=== PATIENT | male | born 1995 | race Caucasian/White ===

== ENCOUNTER → 2017-06-05 | Outpatient (REF) | payer OTHER ==
[2017-06-05 10:43] LABS: SPERM ABNORMAL FORMS OTHER (SPECIFIY)
[2017-06-05 10:44] LABS: % NORMAL FORMS < 4 % (>=4); IMMOTILITY 94 %; NON PROGRESSIVE MOTILITY (c) 6 %; PROGRESSIVE MOTILITY (a) 0 % (>=32); SPERM# 83.8 M/Ejac (>=39); TOTAL FUNCTIONAL 0 M/Ejac.; TOTAL MOTILITY 6 % (>=40); TOTAL PROGRESSIVE SPERM 0 M/Ejac.
== END ==
LOC: M LAB REF 10:32
PROVIDERS: ATTEND Obstetrics & Gynecology
DX: N46.8 Other male infertility (principal)

== ENCOUNTER → 2017-07-07 | Outpatient (REF) | payer OTHER ==
[2017-07-07 11:41] LABS: SEMEN APPEARANCE OPAQUE (OPAQUE); SEMEN VISCOSITY LIQUID (LIQUID); SEMEN VOLUME 6.9 ml (4.0-5.0); SEMEN pH 7.5 (7.0-8.0); SPERM CONCENTRATION 3.1 M/ml (>=15.0); WBC CONCENTRATION >1 M/ml (<=1 M/ml)
[2017-07-07 11:42] LABS: % NORMAL FORMS < 4 % (>=4); IMMOTILITY 83 %; NON PROGRESSIVE MOTILITY (c) 15 %; PROGRESSIVE MOTILITY (a) 2 % (>=32); SPERM# 21.3 M/Ejac (>=39); TOTAL FUNCTIONAL 0 M/Ejac.; TOTAL MOTILITY 17 % (>=40); TOTAL PROGRESSIVE SPERM 0.5 M/Ejac.
== END ==
LOC: M LAB REF 09:18
DX: N46.8 Other male infertility (principal)

== ENCOUNTER → 2018-01-30 | Outpatient (CLI) | payer OTHER | LOC: M LRY 11:02 | DX: S69.91XA Unspecified injury of right wrist, hand and finger(s), initial encounter (principal); X58.XXXA Exposure to other specified factors, initial encounter; Y92.89 Other specified places as the place of occurrence of the external cause; Y93.9 Activity, unspecified; Y99.9 Unspecified external cause status | CPT/HCPCS: 73140 ==

== ENCOUNTER 2019-01-11 15:42 | Emergency (ER) | payer OTHER ==
[~2019-01-11] VITALS: Ht 182.9 cm; Wt 84.1 kg
[2019-01-11] MEDS ORDERED: LIDOCAINE 2% MDV 20 ML VIAL SC ONE (17:15)
[2019-01-11] MEDS ORDERED: BACTRIM 160MG/800MG DS TAB PO ONE (17:30)
[2019-01-11] MEDS ORDERED: BACT800T5 PO (17:33)
[2019-01-11 17:40] VITALS: BP 130/73
== END 2019-01-11 17:47 | disposition home or self-care (01) ==
LOC: M ED 15:42
DX: L02.31 Cutaneous abscess of buttock (principal); F17.210 Nicotine dependence, cigarettes, uncomplicated; Z77.098 Contact with and (suspected) exposure to other hazardous, chiefly nonmedicinal, chemicals; F17.220 Nicotine dependence, chewing tobacco, uncomplicated

== ENCOUNTER → 2022-09-02 | Outpatient (CLI) | payer OTHER ==
[~2022-09-02] MED LIST: BACT800T5 PO
== END ==
LOC: M SOG 09:36
PROVIDERS: ATTEND Physician Assistant
DX: M79.642 Pain in left hand (principal)

== ENCOUNTER → 2023-09-17 | Outpatient (CLI) | payer OTHER | LOC: M PLAIMG 10:28 | PROVIDERS: ATTEND Physician Assistant | DX: R22.30 Localized swelling, mass and lump, unspecified upper limb (principal) ==

== ENCOUNTER 2023-12-09 18:33 | Emergency (ER) | payer OTHER ==
[~2023-12-09] VITALS: Ht 182.9 cm; Wt 103.0 kg
[2023-12-09 19:31] LABS: BASO # 0.1 10^3/uL (0.0-0.2); BASO % 0.9 % (0.0-1.0); EOS # 0.1 10^3/uL (0.0-0.5); EOS % 0.6 % (0.0-3.0); HEMATOCRIT 40.3 % (42.0-52.0); HEMOGLOBIN 14.4 g/dl (13.5-17.5); LYMPH # 1.7 10^3/uL (1.5-5.0); LYMPH % 22.3 % (24.0-44.0); MEAN CORPUSCULAR HEMOGLOBIN 36.2 pg (27.0-33.0); MEAN CORPUSCULAR HGB CONC 35.7 g/dl (32.0-36.5); MEAN CORPUSCULAR VOLUME 101.3 fl (80.0-96.0); MONO # 0.7 10^3/uL (0.0-0.8); MONO % 9.4 % (2.0-8.0); NEUTROPHILS # 5.2 10^3/uL (1.5-8.5); NEUTROPHILS % 66.4 % (36.0-66.0); PLATELET COUNT, AUTOMATED 229 10^3/uL (150-450); RED BLOOD COUNT 3.98 10^6/uL (4.30-6.10); WHITE BLOOD COUNT 7.8 10^3/uL (4.0-10.0)
[2023-12-09 19:57] LABS: LIPASE 27 U/L (12-53)
[2023-12-09 19:59] LABS: ALBUMIN 4.8 G/DL (3.2-5.2); ALKALINE PHOSPHATASE 78 U/L (46-116); ALT/SGPT 25 U/L (7.0-40); AST/SGOT 29 U/L (<34); BILIRUBIN,DIRECT 0.2 MG/DL (<0.4); BILIRUBIN,TOTAL 0.7 MG/DL (0.3-1.2); BLOOD UREA NITROGEN 23 MG/DL (9-23); CALCIUM LEVEL 10.1 MG/DL (8.5-10.1); CARBON DIOXIDE LEVEL 29 MMOL/L (20-31); CHLORIDE LEVEL 106 MMOL/L (98-107); CREATININE FOR GFR 0.98 MG/DL (0.70-1.30); GLOMERULAR FILTRATION RATE > 60.0 (>60); GLUCOSE, FASTING 80 MG/DL (60-100); POTASSIUM SERUM 4.1 MMOL/L (3.5-5.1); SODIUM LEVEL 142 MMOL/L (136-145); TOTAL PROTEIN 7.3 G/DL (5.7-8.2)
[2023-12-09 20:05] LABS: CPK CREATINE PHOSPHOKINASE 399 U/L (46-171)
[2023-12-09 23:26] LABS: CK-MB VALUE MASS 6.6 NG/ML (<3.6)
[2023-12-09 23:31] LABS: FREE T4 1.17 NG/DL (0.89-1.76)
[2023-12-09 23:56] LABS: MB/CK RELATIVE INDEX 1.85 (< OR =4); THYROID STIMULATING HORMONE 2.984 uIU/ML (0.55-4.78)
[2023-12-10] MEDS: KETOROLAC 30 MG/ML 1ML VIAL IV ONE (00:36)
[2023-12-10 00:40] VITALS: BP 128/68; TEMP 98.1; O2SAT 99
[2023-12-10] MEDS ORDERED: IBUP-1022 PO (00:58)
== END 2023-12-10 01:11 | disposition home or self-care (01) ==
LOC: M ED 18:33
DX: R07.9 Chest pain, unspecified (principal); I45.10 Unspecified right bundle-branch block; F17.200 Nicotine dependence, unspecified, uncomplicated; Z79.1 Long term (current) use of non-steroidal anti-inflammatories (NSAID)
CPT/HCPCS: 71045; 80053; 82248; 82550; 82553; 83690; 84439; 84443; 84484; 85025; 85379; 93005; 96374; 99284; J1885

== ENCOUNTER → 2024-01-21 | Outpatient (CLI) | payer OTHER ==
[~2024-01-21] MED LIST changes: +IBUP-1022 PO
== END ==
LOC: M PLAIMG 14:47
PROVIDERS: ATTEND Internal Medicine Pulmonary Disease
DX: J93.9 Pneumothorax, unspecified (principal)

== ENCOUNTER → 2024-01-29 | Outpatient (CLI) | payer OTHER | LOC: M RAD 17:53 | PROVIDERS: ATTEND Internal Medicine Pulmonary Disease | DX: J47.9 Bronchiectasis, uncomplicated (principal) ==

== ENCOUNTER 2024-02-29 07:46 | Day surgery (SDC) | payer OTHER ==
[~2024-02-29] VITALS: Ht 182.9 cm; Wt 101.2 kg
[~2024-02-29 07:46] MED LIST changes: +THERTAB52 PO
[2024-02-29] MEDS ORDERED: LR 1,000 ML IV SCH ×2 (08:35→11:05)
[2024-02-29] MEDS ORDERED: MIDAZOLAM INJ 2MG/2ML VIAL As Ordered ONE (09:36)
[2024-02-29] MEDS ORDERED: fentaNYL 100 MCG/2 ML INJECTION As Ordered ONE (09:37)
[2024-02-29] MEDS ORDERED: LIDOCAINE 2% 100MG/5ML SDV (FOR ANES.) As Ordered ONE (09:53)
[2024-02-29] MEDS ORDERED: propofoL 200 MG/20 ML VIAL As Ordered ONE (09:53)
[2024-02-29] MEDS ORDERED: ONDANSETRON 4MG 2ML VIAL As Ordered ONE (09:54)
[2024-02-29] MEDS ORDERED: KETOROLAC 60MG 2ML VIAL As Ordered ONE (09:55)
[2024-02-29] MEDS ORDERED: ACETAMINOPHEN 1000MG 100ML IV BAG As Ordered ONE (09:55)
[2024-02-29] MEDS: ceFAZolin SOD 2 GM in IV 1 EA IV ONE (10:42)
[2024-02-29] MEDS: BACITRACIN OINTMENT 30GM TUBE As Ordered ONE (10:52)
[2024-02-29] MEDS ORDERED: fentaNYL 100 MCG/2 ML INJECTION IV PRN (11:05)
[2024-02-29] MEDS ORDERED: HYDROMORPHONE HCL 0.5 MG/ 0.5 ML SYRINGE IV PRN (11:05)
[2024-02-29] MEDS ORDERED: ONDANSETRON 4MG 2ML VIAL IV PRN (11:05)
[2024-02-29] MEDS: oxyCODONE 5MG TAB PO PRN (12:08)
[2024-02-29 12:26] VITALS: BP 133/69; TEMP 97.4; O2SAT 100
== END 2024-02-29 12:30 | disposition home or self-care (01) ==
LOC: M SDC 07:46
PROVIDERS: ATTEND Orthopaedic Surgery Hand Surgery
DX: M72.0 Palmar fascial fibromatosis [Dupuytren] (principal); K21.9 Gastro-esophageal reflux disease without esophagitis; Z90.89 Acquired absence of other organs; Z87.891 Personal history of nicotine dependence
CPT/HCPCS: 26121; 88305; J0131; J0665; J0690; J1100; J1885; J2250; J2405; J3010

== ENCOUNTER → 2025-04-13 | Outpatient (CLI) | payer OTHER ==
[~2025-04-13] MED LIST changes: -IBUP-1022 PO; +IBUP600T42 PO
== END ==
LOC: M RAD 09:44
PROVIDERS: ATTEND Student in an Organized Health Care Education/Training Program
DX: D69.6 Thrombocytopenia, unspecified (principal)